=== PATIENT | male | born 2000 | race Caucasian/White ===

== ENCOUNTER 2025-01-30 18:28 | Emergency (ER) | payer OTHER ==
[~2025-01-30] VITALS: Ht 190.5 cm; Wt 90.0 kg
[2025-01-30] MEDS: OxyCODONE HCL 5 MG IR TABLET PO ONE (19:10)
[2025-01-30 19:11] VITALS: TEMP 97.4
[2025-01-30 21:00] VITALS: BP 119/75; PULSE 82; RESP 16; O2SAT 99
== END 2025-01-30 21:29 ==
LOC: EMS 18:30 → EDBD 18:30 → EMS 21:29
DX: S53.104A Unspecified dislocation of right ulnohumeral joint, initial encounter (principal); W18.2XXA Fall in (into) shower or empty bathtub, initial encounter; Y93.89 Activity, other specified; Y92.89 Other specified places as the place of occurrence of the external cause; Y99.8 Other external cause status
CPT/HCPCS: 24600; 99284; 73080-TC; Z7502; Z7610